=== PATIENT | female | born 1995 | race Asian ===

== ENCOUNTER 2024-05-18 07:06 | Outpatient (REF) | payer OTHER, SELFPAY ==
--- NOTE | ~2024-05-18 | US_ITS ---
EXAMINATION: US PELVIS HISTORY: LEFT LOWER QUAD PAIN COMPARISON: There are no prior studies for comparison. TECHNIQUE: Transabdominal real-time 2D michael-scale ultrasound was performed. The patient declined endovaginal examination. FINDINGS: Uterus: The uterus is normal in size, measuring 8.9 x 4.1 x 5.3 cm. Myometrium has a normal echotexture. Multiple fibroids are noted including a left anterior uterine body fibroid measuring 2.7 x 2.5 x 3.4 cm, a fundal fibroid measuring 2.0 x 1.9 x 1.7 cm, and a left fundal fibroid measuring 1.3 x 1.1 x 1.5 cm. Endometrium: The endometrial stripe measures 14 mm in thickness. Right ovary: The right ovary measures 3.0 x 2.2 x 3.1 cm. The right ovary is normal in size and echotexture. Left ovary: The left ovary measures 2.9 x 1.7 x 2.1 cm. The left ovary is normal in size and echotexture. Pelvic fluid: none. US/US pelvic complete IMPRESSION: Fibroid uterus as described. Electronically signed by: Vernon Beavers MD 05/19/2024 07:44 AM EDT
== END 2024-05-18 07:07 | disposition home or self-care (01) ==
LOC: HO.UMASIMG 07:06
PROVIDERS: Visit Provider Family Medicine
DX: R10.32 Left lower quadrant pain (principal)
CPT/HCPCS: 76856